=== PATIENT | female | born 1975 | race African-American/Black ===

== ENCOUNTER 2020-10-17 19:02 | Emergency (ER) | payer OTHER ==
[~2020-10-17] VITALS: Ht 160 cm; Wt 74.8 kg
[~2020-10-17 19:02] MED LIST: BACTRIM DS TAB1 EACH PO; HIBICLENS120 ML TP; KEFLEX500 MG PO
[2020-10-17 20:31] LABS: ABSOLUTE NEUTROPHILS 4.1 thou/uL (1.4-8.2); BASOPHILS 1.4 % (0.0-2.0); HEMATOCRIT 35.5 % (37.0-47.0); HEMOGLOBIN 11.6 gm/dL (12.0-15.0); MCH 29.1 pg (26.0-34.0); MCHC 32.8 g/dL (28.0-37.0); MCV 88.8 fL (80.0-100.0); MONOCYTES 3.8 % (1.0-8.0); PLATELET COUNT 350 thou/uL (150-400); POLYS 48.8 % (36.0-66.0); RBC 3.99 mil/uL (4.20-5.00); RDW 15.5 % (10.5-14.5); WBC 8.5 thou/uL (4.0-11.0)
[2020-10-17 21:29] LABS: CALCIUM 8.6 mg/dL (8.5-10.1); CREATININE 0.8 mg/dL (0.6-1.0)
[2020-10-17 21:38] LABS: POTASSIUM 5.5 mmol/L (3.5-5.1)
[2020-10-17 21:53] VITALS: BP 155/98
== END 2020-10-17 21:54 | disposition left against medical advice (07) ==
LOC: ER 19:02
PROVIDERS: Emergency Medicine
DX: J02.9 Acute pharyngitis, unspecified (principal); F17.210 Nicotine dependence, cigarettes, uncomplicated; Z98.890 Other specified postprocedural states; Z98.51 Tubal ligation status; Z79.899 Other long term (current) drug therapy

== ENCOUNTER 2020-10-20 21:53 | Emergency (ER) | payer OTHER ==
[~2020-10-20] VITALS: Ht 160 cm; Wt 74.8 kg
[2020-10-20 23:02] LABS: ABSOLUTE NEUTROPHILS 4.9 thou/uL (1.4-8.2); BASOPHILS 0.9 % (0.0-2.0); EOSINOPHILS 3.7 % (0.0-3.0); HEMATOCRIT 33.8 % (37.0-47.0); HEMOGLOBIN 11.4 gm/dL (12.0-15.0); LYMPHOCYTES 36.1 % (24.0-44.0); MCH 29.5 pg (26.0-34.0); MCHC 33.8 g/dL (28.0-37.0); MCV 87.4 fL (80.0-100.0); MONOCYTES 4.8 % (1.0-8.0); PLATELET COUNT 320 thou/uL (150-400); POLYS 54.5 % (36.0-66.0); RBC 3.87 mil/uL (4.20-5.00); RDW 14.9 % (10.5-14.5); WBC 9.1 thou/uL (4.0-11.0)
[2020-10-20 23:09] LABS: CREATININE 0.8 mg/dL (0.6-1.0); POTASSIUM 3.4 mmol/L (3.5-5.1)
[2020-10-21] MEDS ORDERED: BENTYL 10 MG CA10 M1 PO (00:34)
[2020-10-21] MEDS ORDERED: PRILOSEC OTC20 MG PO (00:34)
[2020-10-21] MEDS ORDERED: AUGMENTIN 875-1 EACH PO (00:34)
[2020-10-21 00:55] VITALS: BP 146/89
--- NOTE | 2020-10-21 12:35 | EKG ---
[address] [address] [facility] [place] [address] ELECTROCARDIOGRAM REPORT Name: HIRAL OWEN [id number] Admission: 10/20/20 Attend Phys: Discharge: 10/21/20 Date of : 79 Report #: [id number] [facility] ED Test Date: 2020-10-20 Test Time: 22:40:27 Pat Name: HIRAL OWEN Department: Room: Gender: F [employer] Buyer: vic joyce rn : 1975 Requested By: Jorge A Ward Order Number: [id number] MD: Derik Sears Measurements Intervals [place] Rate: 82 P: 53 CO: 150 QRS: 10 QRSD: 89 T: 29 QT: 386 QTc: 451 Interpretive Statements Sinus rhythm Normal tracing No previous ECG available for comparison Electronically Signed On 10-21-2020 12:35:04 [employer] by Derik Sears [email or web address] <ELECTRONICALLY SIGNED> By: Derik Sears MD, [facility] 10/21/20 1235 2240 2240 Derik Sears MD, FACC /EPI
== END 2020-10-21 00:45 | disposition home or self-care (01) ==
LOC: ER 21:53
PROVIDERS: Emergency Medicine
DX: R13.10 Dysphagia, unspecified (principal); J32.9 Chronic sinusitis, unspecified; F17.210 Nicotine dependence, cigarettes, uncomplicated; Z98.890 Other specified postprocedural states; Z98.51 Tubal ligation status

== ENCOUNTER 2021-10-25 17:08 | Emergency (ER) | payer OTHER ==
[~2021-10-25 17:08] MED LIST changes: +AUGMENTIN 875-1 EACH PO; +BENTYL 10 MG CA10 M1 PO; +PRILOSEC OTC20 MG PO
[2021-10-25 17:17] VITALS: BP 152/94
[2021-10-25] MEDS ORDERED: CENTANY30 GM TOP ×2 (20:02→20:03)
[2021-10-25] MEDS ORDERED: MEDROL DOSPAK21 TA1 PO (20:03)
== END 2021-10-25 18:47 | disposition left against medical advice (07) ==
LOC: ER 17:08
DX: R21 Rash and other nonspecific skin eruption (principal); Z53.21 Procedure and treatment not carried out due to patient leaving prior to being seen by health care provider

== ENCOUNTER 2021-10-25 18:53 | Emergency (ER) | payer BC, OTHER ==
[~2021-10-25] VITALS: Ht 162.6 cm; Wt 67.1 kg
[2021-10-25] MEDS ORDERED: CENTANY30 GM TOP ×2 (20:02→20:03)
[2021-10-25] MEDS ORDERED: MEDROL DOSPAK21 TA1 PO (20:03)
[2021-10-25 21:01] VITALS: BP 152/100
== END 2021-10-25 21:03 | disposition home or self-care (01) ==
LOC: ER 18:53
DX: L25.9 Unspecified contact dermatitis, unspecified cause (principal); F17.210 Nicotine dependence, cigarettes, uncomplicated; Z98.51 Tubal ligation status